=== PATIENT | female | born 1945 | race Caucasian/White ===

== ENCOUNTER 2017-04-19 16:45 | Inpatient (IN) | payer MEDICARE ==
[~2017-04-19] VITALS: Ht 152.4 cm; Wt 73.6 kg
[2017-04-19 16:46] VITALS: BP 149/76; PULSE 68; RESP 18; TEMP 99.4; O2SAT 97
--- NOTE | 2017-04-19 17:42 | RADRPT ---
EXAM DATE/TIME: 04/19/2017 17:28 [place] COMPARISON: No previous studies available for comparison. EXTERNAL COMPARISON : [facility] April 17, 2017 is unavailable for comparison. INDICATIONS : Cough. Patient was sent by her oncologist questioning if she has a PE MEDICAL HISTORY : Carcinoma, breast. SURGICAL HISTORY : Mastectomy, right. Loop recorder ENCOUNTER: Initial ACUITY: 2 days PAIN SCORE: 0/10 LOCATION: chest FINDINGS: Right lung is clear. Minimal consolidative changes are present left base. The heart and pulmonary v ascularity are normal. . Cardiac event recorder is evident. CONCLUSION: Consolidative changes left lower lobe. Davin Oates MD FACR on April 19, 2017 at 17:37 Board Certified Radiologist. This report was verified electronically.
[2017-04-19 19:13] LABS: AUTOMATED NEUTROPHIL # 16.1 TH/MM3 (1.8-7.7); BASOPHIL # 0.1 TH/MM3 (0-0.2); BASOPHIL % 0.3 % (0.0-2.0); EOSINOPHIL # 0.3 TH/MM3 (0-0.4); EOSINOPHIL % 1.5 % (0.0-4.0); HEMATOCRIT 38.2 % (35.0-46.0); HEMO FLAGS DIFF FINAL; LYMPHOCYTE # 2.2 TH/MM3 (1.0-4.8); MEAN CELL VOLUME 112.3 FL (80.0-100.0); MEAN CORPUSCULAR HEMOGLOBIN 37.8 PG (27.0-34.0); MEAN CORPUSCULAR HGB CONC 33.6 % (32.0-36.0); MONO % 6.8 % (0.0-8.0); NEUT % 80.4 % (16.0-70.0); PLATELET COUNT 241 TH/MM3 (150-450); RED CELL DISTRIBUTION WIDTH 15.2 % (11.6-17.2); WHITE BLOOD COUNT 20.1 TH/MM3 (4.0-11.0)
[2017-04-19 19:19] LABS: BICARBONATE 25.9 MEQ/L (21.0-32.0)
[2017-04-19 19:23] LABS: POTASSIUM 3.8 MEQ/L (3.5-5.1)
[2017-04-19] MEDS ORDERED: AMLO2.5T PO (20:38)
[2017-04-19] MEDS ORDERED: FURO20TA PO (20:38)
[2017-04-19] MEDS ORDERED: TYLE325T PO (20:38)
[2017-04-19] MEDS ORDERED: AMIO200T PO (20:38)
[2017-04-19] MEDS ORDERED: VITA1000 PO (20:38)
[2017-04-19] MEDS ORDERED: TELM1TAB56 PO (20:38)
[2017-04-19] MEDS ORDERED: METF500T PO (20:38)
[2017-04-19] MEDS ORDERED: LEVO112T2 PO (20:38)
[2017-04-19] MEDS ORDERED: METO50TA PO (20:38)
[2017-04-19] MEDS ORDERED: CALC250T PO (20:38)
[2017-04-19] MEDS ORDERED: PRAD150C PO (20:38)
[2017-04-19] MEDS ORDERED: POTA10CA PO (20:38)
[2017-04-19] MEDS ORDERED: HYDR500C PO (20:38)
[2017-04-19] MEDS ORDERED: PRAV40TA2 PO (20:38)
[2017-04-19] MEDS ORDERED: MULT-65 PO (20:38)
[2017-04-19] MEDS ORDERED: TIMO0.5S30 LEFT EYE (20:38)
[2017-04-19] MEDS ORDERED: TRAV0.00 EACH EYE (20:38)
[2017-04-19] MEDS ORDERED: OCUVTAB PO (20:38)
--- NOTE | 2017-04-19 20:51 | PD ---
HPI Chief Complaint: Abdominal Pain Time Seen by Provider: 20:07 Travel History International Travel<30 days: No Contact w/Intl Traveler<30days: No Traveled to known affect area: No History of Present Illness HPI Patient is a 71-year-old female coming in because her oncologist Dr. Mcdonald told her CTA done 2 days ago at [place] showed a pulmonary embolism. She has no symptoms. She has no shortness of breath. She has no tachycardia. She is not having a orthopnea or exertional shortness of breath. Patient is a non-insulin- dependent. She is also hypertensive did not take her evening meds and triage she is 180/79 BP. She has no lung symptoms whatsoever and is coming in only because she was called by her doctor to come in because a CT done 2 days ago shows a pulmonary embolus according to the patient. PFSH Past Medical History Arthritis: Yes Cancer: Yes (R BREAST) Cardiovascular Problems: Yes (HTN) Diabetes: Yes Patient Takes Glucophage: Yes (METFORMIN 04/19/17) Hypertension: Yes Migraines: Yes Thyroid Disease: Yes (HYPO) Tetanus Vaccination: Unknown Influenza Vaccination: No Past Surgical History Hysterectomy: Yes (TOTAL) Joint Replacement: Yes (LEFT KNEE) Mastectomy: Yes (R WITH NODES) Tonsillectomy: Yes Other Surgery: Yes (R MASECTOMY WITH NODES) Social History Alcohol Use: No Tobacco Use: No Substance Use: No Allergies-Medications (Allergen,Severity, Reaction): Coded Allergies: Penicillins (Verified Allergy, Unknown, 04/19/17) Sulfa (Sulfonamide Antibiotics) (Verified Allergy, Unknown, 04/19/17) nitrofurantoin (Verified Allergy, Unknown, 04/19/17) Reported Meds & Prescriptions Reported Meds & Active Scripts Active Reported Amlodipine (Amlodipine Besylate) 2.5 Mg Tab 2.5 Mg PO DAILY Amiodarone (Amiodarone HCl) 200 Mg Tab 200 Mg PO DAILY Metoprolol Tartrate 50 Mg Tab 50 Mg PO BID Pradaxa (Dabigatran) 150 Mg Cap 150 Mg PO BID Ocuvite (Multiple Vitamins W/ Minerals) 1 Tab 1 Tab PO DAILY Tylenol (Acetaminophen) 325 Mg Tab 325 Mg PO Q4H PRN Travatan Z Opth Drops (Travoprost) 0.004 % Soln 1 Drop EACH EYE HS Timolol Opth Drops 0.5 % Soln 1 Drop LEFT EYE BID Micardis (Telmisartan) 80 Mg Tab 80 Mg PO DAILY Pravastatin 40 Mg Tab 40 Mg PO DAILY Multi-Vitamin Daily (Multiple Vitamin) 1 Tab Tab 1 Tab PO DAILY Metformin (Metformin HCl) 500 Mg Tab 500 Mg PO DAILY With a meal Levothyroxine (Levothyroxine Sodium) 112 Mcg Tab 112 Mcg PO DAILY Potassium Chloride ER (Potassium Chloride) 10 Meq Cap 10 Meq PO BID Hydrea (Hydroxyurea) 500 Mg Cap 500 Mg PO BID Furosemide 20 Mg Tab 20 Mg PO DAILY Calcium Citrate 250 Mg Calcium Tab 250 Mg PO BID Vitamin D-1000 (Cholecalciferol) 1,000 Unit Tab 5,000 Units PO TID Review of Systems Except as stated in HPI: all other systems reviewed are Neg General / Constitutional: No: Fever Cardiovascular: No: Chest Pain or Discomfort Respiratory: No: Cough, Shortness of Breath Physical Exam Narrative GENERAL: AOX3 no resp distress, no tachycardiac, no increased RR SKIN: Warm and dry. HEAD: Atraumatic. Normocephalic. EYES: Pupils equal and round. No scleral icterus. No injection or drainage. ENT: No nasal bleeding or discharge. Mucous membranes pink and moist. NECK: Trachea midline. No JVD. CARDIOVASCULAR: Regular rate and rhythm. HR 66 BPM RESPIRATORY: No accessory muscle use. Clear to auscultation. Breath sounds equal bilaterally. GASTROINTESTINAL: Abdomen soft, non-tender, nondistended. Hepatic and splenic margins not palpable. MUSCULOSKELETAL: Extremities. No obvious deformities. NEUROLOGICAL: Awake and alert. No obvious cranial nerve deficits. Motor grossly within normal limits. Five out of 5 muscle strength in the arms and legs. Normal speech. PSYCHIATRIC: Appropriate mood and affect; insight and judgment normal. Data Data Last Documented VS Vital Signs Date Time Temp Pulse Resp B/P (MAP) Pulse Ox O2 Delivery O2 Flow Rate FiO2 04/19/17 21:00 60 18 145/65 (91) 95 Room Air 04/19/17 16:46 99.4 Orders Orders Complete Blood Count With Diff (04/19/17 17:14) Basic Metabolic Panel (Bmp) (04/19/17 17:14) Coag Profile (04/19/17 17:14) Electrocardiogram (04/19/17 ) Chest, Pa & Lat (04/19/17 ) Admit To Inpatient (04/19/17 ) Inpatient Certification (04/19/17 ) Diet Heart Healthy (04/20/17 Breakfast) Vital Signs (Adult) LIBBY.Q4H (04/19/17 22:02) Activity Bed Rest With Brp (04/19/17 22:02) Labs Laboratory Tests Test 04/19/17 18:01 04/19/17 20:53 White Blood Count 20.1 TH/MM3 Red Blood Count 3.40 MIL/MM3 Hemoglobin 12.8 GM/DL Hematocrit 38.2 % Mean Corpuscular Volume 112.3 FL Mean Corpuscular Hemoglobin 37.8 PG Mean Corpuscular Hemoglobin Concent 33.6 % Red Cell Distribution Width 15.2 % Platelet Count 241 TH/MM3 Mean Platelet Volume 8.6 FL Neutrophils (%) (Auto) 80.4 % Lymphocytes (%) (Auto) 11.0 % Monocytes (%) (Auto) 6.8 % Eosinophils (%) (Auto) 1.5 % Basophils (%) (Auto) 0.3 % Neutrophils # (Auto) 16.1 TH/MM3 Lymphocytes # (Auto) 2.2 TH/MM3 Monocytes # (Auto) 1.4 TH/MM3 Eosinophils # (Auto) 0.3 TH/MM3 Basophils # (Auto) 0.1 TH/MM3 CBC Comment DIFF FINAL Differential Comment Blood Urea Nitrogen 17 MG/DL Creatinine 0.80 MG/DL Random Glucose 111 MG/DL Calcium Level 8.7 MG/DL Sodium Level 132 MEQ/L Potassium Level 3.8 MEQ/L Chloride Level 98 MEQ/L Carbon Dioxide Level 25.9 MEQ/L Anion Gap 8 MEQ/L Estimat Glomerular Filtration Rate 70 ML/MIN Prothrombin Time 13.8 SEC Prothromb Time International Ratio 1.2 RATIO Activated Partial Thromboplast Time 43.2 SEC MDM Medical Decision Making Medical Screen Exam Complete: Yes Emergency Medical Condition: Yes Differential Diagnosis P E vs CHF vs ACS vs incidental finding on CT Narrative Course pt has CTA from monday that revealed a LLL PE , I spoke with Dr Singh of the [facility] covering for Dr Field, pt is Diagnosis Primary Impression: Pulmonary emboli Admitting Information Admitting Physician Requests: Admit Condition: Stable Nicola Jay MD Apr 19, 2017 20:51
[2017-04-19 21:00] VITALS: BP 145/65; PULSE 60; RESP 18; O2SAT 95
[2017-04-19] MEDS ORDERED: HEPARIN-D5W 25,000 U/250 ML 250 ML IV PRN (22:15)
[2017-04-19 22:29] LABS: INTERNATIONAL NORMALIZED RATIO 1.2 RATIO; PROTHROMBIN TIME - PATIENT 13.8 SEC (9.8-11.6)
[2017-04-19 22:31] LABS: APTT (PATIENT) 43.2 SEC (24.3-30.1)
[2017-04-19 22:46] VITALS: BP 149/67; PULSE 55; RESP 17; O2SAT 95
[2017-04-20 00:25] VITALS: BP 128/57; PULSE 63; RESP 20; TEMP 98; O2SAT 94
[2017-04-20 03:29] VITALS: BP 128/60; PULSE 65; RESP 18; TEMP 98.2; O2SAT 96
[2017-04-20] MEDS ORDERED: HEPARIN SODIUM - IV 10,000 UNITS/10 ML VIAL IV PRN (04:15)
[2017-04-20] MEDS ORDERED: HEPARIN - 10,000 UNITS/ML IV ADDITIVE IV PRN (04:15)
[2017-04-20 06:02] LABS: HEMATOCRIT 33.9 % (35.0-46.0); MEAN CELL VOLUME 112.5 FL (80.0-100.0); MEAN CORPUSCULAR HEMOGLOBIN 38.9 PG (27.0-34.0); MEAN CORPUSCULAR HGB CONC 34.5 % (32.0-36.0); PLATELET COUNT 202 TH/MM3 (150-450); RED BLOOD COUNT 3.01 MIL/MM3 (4.00-5.30); RED CELL DISTRIBUTION WIDTH 14.9 % (11.6-17.2); REVIEW FLAG FINAL; WHITE BLOOD COUNT 17.1 TH/MM3 (4.0-11.0)
[2017-04-20 06:11] LABS: APTT (PATIENT) 67.6 SEC (24.3-30.1); INTERNATIONAL NORMALIZED RATIO 1.2 RATIO; PROTHROMBIN TIME - PATIENT 13.1 SEC (9.8-11.6)
--- NOTE | 2017-04-20 07:56 | HHI.HP ---
HPI Service [facility] Hospitalists Primary Care Physician Dr. Kevin Lozoya Admission Diagnosis PULMONARY Embolus Chief Complaint: PE Travel History International Travel<30 Days: No Contact w/Intl Traveler <30 Da: No Traveled to Known Affected Are: No History of Present Illness Mrs. 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 Pt reports that she had a CTA chest 4 days ago and was called by her Oncologist, Dr. Field, with the results of a reported PE and instructed to go to the ED. Pt states that she has not had any SOB, palpitations , or chest pain. In review of previous noted from Dr. Field she has a previous abnormal lung nodule and Dr. Field had wanted a CT scan with IV contrast for re- evaluation. Pt was started on Heparin in the ED. She is currently on RA with stable O2 saturations. Pt states that she was started on Pradaxa a few months ago by Dr. Napoles for her A. fib. She was also started a few months back on Amiodarone and Amlodipine in addition to the Metoprolol and Micardis that she was also taking. She reports that her BP have been stable on all these medications. Denies any dizziness, weakness, palpitations, chest pain, nausea/ vomiting, abdominal pain. She takes Lasix as needed for LE edema. She states that she has not taken this for the last week. Review of Systems Constitutional: DENIES: Fever, Chills, Dizziness Eyes: DENIES: Vision loss Ears, nose, mouth, throat: DENIES: Hearing loss Respiratory: DENIES: Cough, Shortness of breath Cardiovascular: COMPLAINS OF: Lower Extremity Edema (mild, chronic), DENIES: Chest pain, Palpitations, Dyspnea on Exertion, Orthopnea Gastrointestinal: DENIES: Abdominal pain, Constipation, Diarrhea, Nausea, Vomiting Genitourinary: DENIES: Urinary frequency, Hematuria, Dysuria Musculoskeletal: DENIES: Joint pain, Back pain, Neck pain Integumentary: DENIES: Rash Immunologic/allergic: DENIES: Urticaria Neurologic: DENIES: Headache Psychiatric: DENIES: Confusion Past Family Social History Past Medical History 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 fib Paroxysmal SVT PVCs RBBB Migraine headaches Hypothyroidism Diabetes 2D echo (02/14/17): - Normal LV systolic function, EF 60-65% - Mild LA enlargement - Mild LVH - Mild aortic valve sclerosis - Mild tricuspid valve regurgitation - Estimated RVSP 36mmHg Past Surgical History Hysterectomy Tonsillectomy Left total knee arthroplasty in 2012 Right mastectomy with lymph node removal Loop recorder implanted (2014) Ablation for A. fib Cataract surgery Reported Medications -Metoprolol Tartrate 50 Mg PO BID -Ocuvite 1 Tab PO DAILY -Tylenol 325 Mg PO Q4H PRN -Travatan Z Opth Drops (Travoprost) 0.004 % Soln 1 Drop EACH EYE HS -Timolol Opth Drops 0.5 % Soln 1 Drop LEFT EYE BID -Micardis 80 Mg PO DAILY -Pravastatin 40 Mg PO DAILY -Multi-Vitamin Daily 1 Tab PO DAILY -Metformin 500 Mg PO DAILY -Levothyroxine 112 Mcg PO DAILY -Potassium Chloride ER 10 Meq PO BID -Hydrea 500 Mg PO BID -Furosemide 20 Mg PO DAILY -Calcium Citrate 250 Mg Calcium Tab 250 Mg PO BID -Vitamin D-1000 5,000 Units PO TID ?Pradaxa 150 Mg PO BID ?Amlodipine 2.5 Mg PO DAILY ?Amiodarone 200 Mg PO DAILY Allergies: Coded Allergies: Penicillins (Verified Allergy, Unknown, 04/19/17) Sulfa (Sulfonamide Antibiotics) (Verified Allergy, Unknown, 04/19/17) nitrofurantoin (Verified Allergy, Unknown, 04/19/17) Family History Noncontributory Social History Denies any alcohol, tobacco or illicit drug use Physical Exam Vital Signs Vital Signs Date Time Temp Pulse Resp B/P (MAP) Pulse Ox O2 Delivery O2 Flow Rate FiO2 04/20/17 03:29 98.2 65 18 128/60 (82) 96 04/20/17 00:25 98.0 63 20 128/57 (80) 94 04/19/17 23:56 04/19/17 22:46 55 17 149/67 (94) 95 Room Air 04/19/17 21:00 60 18 145/65 (91) 95 Room Air 04/19/17 16:46 99.4 68 18 149/76 (100) 97 Room Air Physical Exam GENERAL: This is a well-nourished, well-developed patient, in no apparent distress. HEENT: Atraumatic. Normocephalic. No temporal or scalp tenderness. No scleral icterus. Airway patent. NECK: Trachea midline, supple, nontender. CARDIO: Regular. RESP: CTA bilaterally. No wheezes, rales, or rhonchi. ABD: +BS, soft, non-tender, nondistended. EXT: Extremities without clubbing, cyanosis, or edema. NEURO: Awake and alert. Motor and sensory grossly within normal limits. Normal speech. Laboratory Laboratory Tests Test 04/19/17 18:01 04/19/17 20:53 04/20/17 05:25 White Blood Count 20.1 17.1 Red Blood Count 3.40 3.01 Hemoglobin 12.8 11.7 Hematocrit 38.2 33.9 Mean Corpuscular Volume 112.3 112.5 Mean Corpuscular Hemoglobin 37.8 38.9 Mean Corpuscular Hemoglobin Concent 33.6 34.5 Red Cell Distribution Width 15.2 14.9 Platelet Count 241 202 Mean Platelet Volume 8.6 8.6 Neutrophils (%) (Auto) 80.4 Lymphocytes (%) (Auto) 11.0 Monocytes (%) (Auto) 6.8 Eosinophils (%) (Auto) 1.5 Basophils (%) (Auto) 0.3 Neutrophils # (Auto) 16.1 Lymphocytes # (Auto) 2.2 Monocytes # (Auto) 1.4 Eosinophils # (Auto) 0.3 Basophils # (Auto) 0.1 CBC Comment DIFF FINAL Differential Comment Blood Urea Nitrogen 17 Creatinine 0.80 Random Glucose 111 Calcium Level 8.7 Sodium Level 132 Potassium Level 3.8 Chloride Level 98 Carbon Dioxide Level 25.9 Anion Gap 8 Estimat Glomerular Filtration Rate 70 Prothrombin Time 13.8 13.1 Prothromb Time International Ratio 1.2 1.2 Activated Partial Thromboplast Time 43.2 67.6 Result Diagram: 04/20/17 0525 04/19/17 1801 Imaging Last Impressions Chest X-Ray 04/19/17 0000 Signed Impressions: Service Date/Time: Wednesday, April 19, 2017 17:28 - CONCLUSION: Consolidative changes left lower lobe. Davin Oates MD FACR Caprini VTE Risk Assessment Caprini VTE Risk Assessment: Mod/High Risk (score >= 2) Caprini Risk Assessment Model Point Value = 1 Point Value = 2 Point Value = 3 Point Value = 5 Age 41-60 Minor surgery BMI > 25 kg/m2 Swollen legs Varicose veins or History of unexplained or recurrent spontaneous Oral contraceptives or hormone replacement Sepsis (< 1 month) Serious lung disease, including pneumonia (< 1 month) Abnormal pulmonary function Acute myocardial infarction Congestive heart failure (< 1 month) History of inflammatory bowel disease Medical patient at bed rest Age 61-74 Arthroscopic surgery Major open surgery (> 45 min) Laparoscopic surgery (> 45 min) Malignancy Confined to bed (> 72 hours) Immobilizing plaster cast Central venous access Age >= 75 History of VTE Family history of VTE Factor V Leiden Prothrombin [id number] Lupus anticoagulant Anticardiolipin antibodies Elevated serum homocysteine Heparin-induced thrombocytopenia Other congenital or acquired thrombophilia Stroke (< 1 month) Elective arthroplasty Hip, pelvis, or leg fracture Acute spinal cord injury (< 1 month) Prophylaxis Regimen Total Risk Factor Score Risk Level Prophylaxis Regimen 0-1 Low Early ambulation 2 Moderate Order ONE of the following: *Sequential Compression Device (SCD) *Heparin 5000 units SQ BID 3-4 Higher Order ONE of the following medications: *Heparin 5000 units SQ TID *Enoxaparin/Lovenox 40 mg SQ daily (WT < 150 kg, CrCl > 30 mL/min) *Enoxaparin/Lovenox 30 mg SQ daily (WT < 150 kg, CrCl > 10-29 mL/min) *Enoxaparin/Lovenox 30 mg SQ BID (WT < 150 kg, CrCl > 30 mL/min) AND/OR *Sequential Compression Device (SCD) 5 or more Highest Order ONE of the following medications: *Heparin 5000 units SQ TID (Preferred with Epidurals) *Enoxaparin/Lovenox 40 mg SQ daily (WT < 150 kg, CrCl > 30 mL/min) *Enoxaparin/Lovenox 30 mg SQ daily (WT < 150 kg, CrCl > 10-29 mL/min) *Enoxaparin/Lovenox 30 mg SQ BID (WT < 150 kg, CrCl > 30 mL/min) AND *Sequential Compression Device (SCD) Assessment and Plan Problem List: (1) Pulmonary embolism ICD Codes: I26.99 - Other pulmonary embolism without acute cor pulmonale Plan: Patient is a 71 y/o female with HTN, diabetes, atrial fibrillation on Pradaxa, 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 Pulmonary Embolism - Pt reports that she had a CTA chest 4 days ago and was called by her Oncologist, Dr. Field, office with the results of a reported PE and instructed to go to the ED. Pt states that she has not had any SOB, palpitations, or chest pain. - In review of previous noted from Dr. Field she has a previous abnormal lung nodule and Dr. Field had wanted a CT scan with IV contrast for re-evaluation. - Pt was started on Heparin in the ED. - She is currently on RA with stable O2 saturations. - Pt states that she was started on Pradaxa a few months ago by Dr. Napoles for her A. fib. - Obtain report of the CTA from [facility] to review - Consult Dr. Field - Heparin management per protocol A. fib - She was also started a few months back on Amiodarone and Pradaxa in addition to the Metoprolol she was on for her A. fib. - Pt has a Loop Recorder in place - She is currently in NSR HTN - Cont. Amlodipine and Micardis - Monitor BP Diabetes - Hold OHA - NovoLog SSI - Accu checks (2) Atrial fibrillation ICD Codes: I48.91 - Unspecified atrial fibrillation (3) Myeloproliferative neoplasm ICD Codes: D47.1 - Chronic myeloproliferative disease (4) Hx of breast cancer ICD Codes: Z85.3 - Personal history of malignant neoplasm of breast (5) HTN (hypertension) ICD Codes: I10 - Essential (primary) hypertension (6) Diabetes ICD Codes: E11.9 - Type 2 diabetes mellitus without complications Assessment and Plan Patient examined. Assessment and plan formulated with Lisa Marrero PA-C. I agree with the above. MPD/essential thromcocythemia. hx breast ca on pradaxa. developed PE. on heparin. seen by dr Field who pt tells me is going to switch over to eliquis. d/c tomorrow. Lisa Marrero Apr 20, 2017 07:56 Gabe Sosa MD Apr 20, 2017 14:47
[2017-04-20 08:19] VITALS: BP 155/72; PULSE 70; RESP 18; TEMP 98.3; O2SAT 97
[2017-04-20] MEDS ORDERED: PILL SPLITTER OTHER PRN (09:30)
[2017-04-20] MEDS ORDERED: FUROSEMIDE 20 MG TAB PO SCH (10:00)
[2017-04-20] MEDS: TIMOLOL MALEATE 0.5% OPHT SOLN 5 ML BTL LEFT EYE SCH ×2 (10:00→21:05)
[2017-04-20] MEDS: LEVOTHYROXINE SODIUM 112 MCG TAB PO SCH (10:29)
[2017-04-20] MEDS: AMIODARONE 200 MG TAB PO SCH (10:29)
[2017-04-20] MEDS: METOPROLOL TARTRATE 50 MG TAB PO SCH ×2 (10:29→21:08)
[2017-04-20] MEDS: POTASSIUM CHLORIDE 10 MEQ CAP PO SCH ×2 (10:30→21:06)
[2017-04-20] MEDS: amLODIPine BESYLATE 5 MG TAB PO SCH (10:30)
[2017-04-20] MEDS: PRAVASTATIN SOD 40 MG TAB PO SCH (10:30)
[2017-04-20] MEDS: LOSARTAN 50 MG TAB PO SCH (10:30)
[2017-04-20] MEDS ORDERED: DEXTROSE 50% IN WATER 50 ML VIAL(D50) IV PUSH PRN (10:30)
[2017-04-20] MEDS ORDERED: GLUCAGON 1 MG/ML VIAL OTHER PRN (10:30)
[2017-04-20 11:01] VITALS: BP 148/68; PULSE 70; RESP 18; TEMP 98; O2SAT 96
[2017-04-20] MEDS: HYDROXYUREA 500 MG CAP PO SCH ×2 (11:26→21:08)
[2017-04-20] MEDS: INSULIN ASPART SUPPLEMENTAL SCALE SQ SCH ×3 (12:00→21:00)
[2017-04-20 12:06] LABS: APTT (PATIENT) 55.3 SEC (24.3-30.1)
[2017-04-20 15:14] VITALS: BP 137/72; PULSE 63; RESP 18; TEMP 98.3; O2SAT 96
--- NOTE | 2017-04-20 17:06 | EKG ---
Date Performed: 04/19/2017 Time Performed: 17:51:51 PTAGE: 71 years EKG: Sinus rhythm RIGHT BUNDLE BRANCH BLOCK LEFT ANTERIOR FASCICULAR BLOCK MODERATE VOLTAGE CRITERIA FOR LVH, CONSIDER NORMAL VARIANT POSSIBLE SEPTAL MYOCARDIAL INFARCTION When compared to previous tracing, there is a n ew rigt bundle Branch block and new left anterior fascicular block. Clinical corrolation is nadege villalba ABNORMAL ECG PREVIOUS TRACING : 08/17/1998 17.09 DOCTOR: Janet Keen Interpretating Date/Time 04/20/2017 17:06:09
[2017-04-20 19:02] LABS: APTT (PATIENT) 43.9 SEC (24.3-30.1)
[2017-04-20 20:00] VITALS: BP 133/63; PULSE 67; RESP 20; TEMP 98.3; O2SAT 97
[2017-04-20] MEDS ORDERED: LATANOPROST 0.005% OPHT SOLN 2.5 ML BTL EACH EYE SCH (21:00)
[2017-04-21] VITALS: BP 125/59; PULSE 59; RESP 20; TEMP 98.1; O2SAT 96
[2017-04-21 02:49] LABS: APTT (PATIENT) 31.3 SEC (24.3-30.1)
[2017-04-21 04:00] VITALS: BP 123/63; PULSE 62; RESP 20; TEMP 98.4; O2SAT 93
[2017-04-21] MEDS: LEVOTHYROXINE SODIUM 112 MCG TAB PO SCH (05:39)
--- NOTE | 2017-04-21 06:32 | MB ---
cc: MIRNA AVILA DATE OF CONSULTATION April 20, 2017. REASON FOR CONSULTATION Patient with a history of myeloproliferative neoplasm with JAK2 positive essential thrombocytosis, history of atrial fibrillation who has pulmonary embolism. HISTORY OF PRESENT ILLNESS Ms. Wyatt is a 71-year-old female who has a diagnosis of myeloproliferative neoplasm with JAK2 positive essential thrombocytosis. She is being treated with Hydrea 500 mg twice daily. She has a history of A-fib and she was started on Pradaxa by her engine hostler. She also has a history of breast cancer and she has undergone mastectomy followed by chemotherapy. She was also treated with adjuvant radiation treatments. She was diagnosed with breast cancer in 1984. The patient recently underwent chest imaging and she was found to have pulmonary embolism. The patient was sent to the emergency department since she could not be evaluated in the oncology clinic. She has been started on heparin drip. She is tolerating the treatment without any issues. She denies any chest pain or shortness of breath. No abdominal pain and no lower extremity edema or pain. She states that she has been compliant with Pradaxa for the past 3-4 months and has not skipped her treatments. REVIEW OF SYSTEMS A comprehensive 14-point review of systems was completed which is negative except as described in the HPI. PAST MEDICAL HISTORY 1. Myeloproliferative neoplasm with JAK2 positive essential thrombocytosis, currently on Hydrea. 2. Right breast invasive breast cancer diagnosed in 1984. 3. Atrial fibrillation. 4. History of abnormal lung nodule. 5. Arthritis. 6. Hypertension. 7. Paroxysmal atrial fibrillation. 8. Paroxysmal SVT. 9. History of PVC. 10. Migraine headaches. 11. Hypothyroidism. 12. Diabetes. PAST SURGICAL HISTORY 1. Hysterectomy. 2. Tonsillectomy. 3. Left knee arthroplasty in 2011. 4. Right mastectomy with left lymph node . 5. Loop recorder placement. 6. Ablation for A-fib. 7. Cataract surgery. MEDICATIONS 1. Metoprolol 50 mg p.o. b.i.d. 2. Ocuvite 1 tablet p.o. daily. 3. Tylenol 325 mg p.o. q.4 hours p.r.n. 4. Travatan ophthalmic drops each eye q.h.s. 5. Timolol 0.5% solution 1 drop left eye b.i.d. 6. Micardis 80 mg p.o. daily. 7. Pravastatin 40 mg daily. 8. Multivitamin one tablet p.o. daily. 9. Metformin 500 mg p.o. daily. 10. Levothyroxine 112 mcg p.o. daily. 11. Potassium chloride 10 mEq p.o. b.i.d. 12. Hydrea 500 mg p.o. b.i.d. 13. Furosemide 20 mg p.o. daily. 14. Calcium citrate 50 mg p.o. b.i.d. 15. Vitamin D 5000 units p.o. t.i.d. 16. Pradaxa 150 mg p.o. b.i.d. which has been discontinued. 17. She is currently on heparin GTT. ALLERGIES PENICILLIN. SULFA DRUGS. NITROFURANTOIN. FAMILY HISTORY Noncontributory. SOCIAL HISTORY She does not smoke cigarettes. No alcohol abuse. No drug abuse. PHYSICAL EXAMINATION VITAL SIGNS: Blood pressure is 148/68, pulse is in 70s, temperature is 98, O2 sats are 96% on room air. GENERAL: Elderly female in no apparent distress. HEENT: Pupils are equal, round, reactive to light. EOMI. No oral thrush. No oral lesions. NECK: Supple. No JVD, no bruits, no lymphadenopathy. CHEST: Clear to auscultation bilaterally. CARDIAC: S1-S2. Regular rate and rhythm. ABDOMEN: Soft, nontender, nondistended. Bowel sounds are present. EXTREMITIES: Without any edema, clubbing or cyanosis. SKIN: Without any petechiae, lesion or bruises. NEURO: No focal deficits. PSYCHIATRIC: Mood and affect is appropriate. LABORATORY DATA WBC is 17.1, hemoglobin is 11.7, platelet count is 202. Serum chemistries show sodium of 132, potassium 3.8, chloride 98, CO2 25.9, anion gap is 8, BUN is 17, creatinine is 0.8, GFR is 70, glucose is 111, calcium is 8.7. Coags - PTT is 55.3. CHEST X-RAY Consolidated changes were noted in the left lobe. OUTPATIENT CTA Reviewed. ASSESSMENT AND PLAN This is 71-year-old female who has a diagnosis of myeloproliferative neoplasm with JAK2 positive essential thrombocytosis, history of paroxysmal A-fib, history of breast cancer who was admitted to the hospital after she was found to have pulmonary embolism. 1. Pulmonary embolism in the setting of myeloproliferative disorder with JAK2 Positive disease: She was on Pradaxa and has been compliant so technically this appears to be a failure of anticoagulation with Pradaxa. Continue heparin. We will transition the patient to Eliquis. She will be started on the loading dose for the first week and then this will be switched to the maintenance Eliquis dose after that. If the patient is stable tomorrow, we can discharge her home with Eliquis 10 mg p.o. b.i.d X 7 days, followed by 5mg PO BID. We will need to obtain Dopplers of the lower extremity to see whether the source of this pulmonary embolism is in the lower extremities. I have discussed this with the patient at length. I have answered all her questions. 2. JAK2 positive essential thrombocytosis and myeloproliferative neoplasm: She will remain on Hydrea. 3. Remote history of breast cancer. She is essentially cured from this disease. Thank you for allowing me to participate in the care of this patient. I will continue to follow this patient along. MD ARTIE Michele/JEANCARLOS /11:56 PM /6:07 AM MTDNora
[2017-04-21 07:47] VITALS: BP 139/61; PULSE 66; RESP 16; TEMP 97.9; O2SAT 94
[2017-04-21] MEDS: INSULIN ASPART SUPPLEMENTAL SCALE SQ SCH ×2 (08:00→12:00)
--- NOTE | 2017-04-21 08:22 | HHI.PR ---
Subjective Remarks No new complaints Pt is having LE Doppler performed Complains of slight headache Objective Vitals Vital Signs Date Time Temp Pulse Resp B/P (MAP) Pulse Ox O2 Delivery O2 Flow Rate FiO2 04/21/17 07:47 97.9 66 16 139/61 (87) 94 04/21/17 04:00 98.4 62 20 123/63 (83) 93 04/21/17 00:00 98.1 59 20 125/59 (81) 96 04/20/17 20:00 98.3 67 20 133/63 (86) 97 04/20/17 15:14 98.3 63 18 137/72 (93) 96 04/20/17 11:01 98.0 70 18 148/68 (94) 96 04/20/17 08:19 98.3 70 18 155/72 (99) 97 Result Diagram: 04/20/17 0525 04/19/17 1801 Other Results Laboratory Tests Test 04/19/17 18:01 04/19/17 20:53 04/20/17 05:25 04/20/17 11:10 White Blood Count 20.1 TH/MM3 17.1 TH/MM3 Red Blood Count 3.40 MIL/MM3 3.01 MIL/MM3 Hemoglobin 12.8 GM/DL 11.7 GM/DL Hematocrit 38.2 % 33.9 % Mean Corpuscular Volume 112.3 FL 112.5 FL Mean Corpuscular Hemoglobin 37.8 PG 38.9 PG Mean Corpuscular Hemoglobin Concent 33.6 % 34.5 % Red Cell Distribution Width 15.2 % 14.9 % Platelet Count 241 TH/MM3 202 TH/MM3 Mean Platelet Volume 8.6 FL 8.6 FL Neutrophils (%) (Auto) 80.4 % Lymphocytes (%) (Auto) 11.0 % Monocytes (%) (Auto) 6.8 % Eosinophils (%) (Auto) 1.5 % Basophils (%) (Auto) 0.3 % Neutrophils # (Auto) 16.1 TH/MM3 Lymphocytes # (Auto) 2.2 TH/MM3 Monocytes # (Auto) 1.4 TH/MM3 Eosinophils # (Auto) 0.3 TH/MM3 Basophils # (Auto) 0.1 TH/MM3 CBC Comment DIFF FINAL Differential Comment Blood Urea Nitrogen 17 MG/DL Creatinine 0.80 MG/DL Random Glucose 111 MG/DL Calcium Level 8.7 MG/DL Sodium Level 132 MEQ/L Potassium Level 3.8 MEQ/L Chloride Level 98 MEQ/L Carbon Dioxide Level 25.9 MEQ/L Anion Gap 8 MEQ/L Estimat Glomerular Filtration Rate 70 ML/MIN Prothrombin Time 13.8 SEC 13.1 SEC Prothromb Time International Ratio 1.2 RATIO 1.2 RATIO Activated Partial Thromboplast Time 43.2 SEC 67.6 SEC 55.3 SEC Test 04/20/17 17:48 04/20/17 23:10 04/21/17 02:10 Activated Partial Thromboplast Time 43.9 SEC 148.0 SEC 31.3 SEC Imaging Last Impressions Chest X-Ray 04/19/17 0000 Signed Impressions: Service Date/Time: Monday, April 19, 2017 17:28 - CONCLUSION: Consolidative changes left lower lobe. 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 Pulmonary Embolism - Pt reports that she had a CTA chest 4 days ago and was called by her Oncologist, Dr. Field, office with the results of a reported PE and instructed to go to the ED. Pt states that she has not had any SOB, palpitations, or chest pain. - In review of previous noted from Dr. Field she has a previous abnormal lung nodule and Dr. Field had wanted a CT scan with IV contrast for re-evaluation. - Pt was started on Heparin in the ED. - She is currently on RA with stable O2 saturations. - Pt states that she was started on Pradaxa a few months ago by Dr. Napoles for her A. fib and has been compliant. - Obtain report of the CTA from [facility] to review - Appreciate consultation from Dr. Field, Dr. Field has recommended Starting Eliquis 5mg po BID - Stop Heparin this morning, 3 hours after stopping Heparin this morning, start Eliquis 5mg po BID. This was discussed with the pts nurse - LE Doppler US is pending. A. fib - She was also started a few months back on Amiodarone and Pradaxa in addition to the Metoprolol she was on for her A. fib. - Pt has a Loop Recorder in place - She is currently in NSR HTN - Cont. Amlodipine and Micardis - Monitor BP Diabetes - Hold OHA - NovoLog SSI - Accu checks (2) Atrial fibrillation ICD Codes: I48.91 - Unspecified atrial fibrillation (3) Myeloproliferative neoplasm ICD Codes: D47.1 - Chronic myeloproliferative disease (4) Hx of breast cancer ICD Codes: Z85.3 - Personal history of malignant neoplasm of breast (5) HTN (hypertension) ICD Codes: I10 - Essential (primary) hypertension (6) Diabetes ICD Codes: E11.9 - Type 2 diabetes mellitus without complications Assessment and Plan Patient examined. Assessment and plan formulated with Lisa Marrero PA-C. I agree with the above. stop pradaxa. d/c heparin. eliquis and f/u hem/onc and pcp. Problem Qualifiers (1) Pulmonary embolism: Qualified Codes: I26.99 - Other pulmonary embolism without acute cor pulmonale Lisa Marrero Apr 21, 2017 08:22 Gabe Sosa MD Apr 21, 2017 15:14
--- NOTE | 2017-04-21 08:44 | RADRPT ---
EXAM DATE/TIME: 04/21/2017 08:11 [place] COMPARISON: No previous studies available for comparison. INDICATIONS : Bilateral leg swelling. MEDICAL HISTORY : Hypertension. Hypothyroidism. Migraine. Right breast cancer. Diabetes. Arthritis. Anticoagulant the Kathya yang. SURGICAL HISTORY : Tonsillectomy.Hysterectomy. Right mastectomy with lymph node removal. ENCOUNTER: Initial ACUITY: 2 day PAIN SCORE: 0/10 LOCATION: Bilateral legs. TECHNIQUE: Venous ultrasound of the left and right leg was performed from the inguinal ligament to the proximal calf. Real-time, color Doppler and spectral tracing, compression and augmentation techniques were us ed. FINDINGS: RIGHT LEG: There is normal compressibility of the deep venous system from the inguinal region to the proximal ca lf. No echogenic clot is seen in the lumen of the common femoral, femoral, popliteal, and posterior tibial veins. There is a normal response of the venous system to proximal and distal augmentation an d respiration. LEFT LEG: There is normal compressibility of the deep venous system from the inguinal region to the proximal ca lf. No echogenic clot is seen in the lumen of the common femoral, femoral, popliteal, and posterior tibial veins. There is a normal response of the venous system to proximal and distal augmentation an d respiration. CONCLUSION: Normal examination. Juice Andrews MD on April 21, 2017 at 8:41 Board Certified Radiologist. This report was verified electronically.
[2017-04-21] MEDS: AMIODARONE 200 MG TAB PO SCH (09:15)
[2017-04-21] MEDS: HYDROXYUREA 500 MG CAP PO SCH (09:16)
[2017-04-21] MEDS: METOPROLOL TARTRATE 50 MG TAB PO SCH (09:16)
[2017-04-21] MEDS: PRAVASTATIN SOD 40 MG TAB PO SCH (09:16)
[2017-04-21] MEDS: amLODIPine BESYLATE 5 MG TAB PO SCH (09:16)
[2017-04-21] MEDS: POTASSIUM CHLORIDE 10 MEQ CAP PO SCH (09:16)
[2017-04-21] MEDS: LOSARTAN 50 MG TAB PO SCH (09:17)
[2017-04-21] MEDS: TIMOLOL MALEATE 0.5% OPHT SOLN 5 ML BTL LEFT EYE SCH (09:18)
[2017-04-21] MEDS ORDERED: APIXABAN 5 MG TABLET PO SCH ×2 (11:00→21:00)
[2017-04-21 12:04] VITALS: BP 129/61; PULSE 60; RESP 16; TEMP 98.7; O2SAT 96
[2017-04-21] MEDS ORDERED: APIX5TAB PO (13:14)
--- NOTE | 2017-04-21 13:16 | HHI.DCPOC ---
Discharge Care Plan Diagnosis: (1) Atrial fibrillation (2) Diabetes (3) HTN (hypertension) (4) Hx of breast cancer (5) Myeloproliferative neoplasm (6) Pulmonary embolism Goals to Promote Your Health * To prevent worsening of your condition and complications * To maintain your health at the optimal level Directions to Meet Your Goals Take your medications as prescribed Follow your dietary instruction Follow activity as directed Keep your appointments as scheduled Take your immunizations and boosters as scheduled If your symptoms worsen call your PCP, if no PCP go to Urgent Care Center or Emergency Room Smoking is Dangerous to Your Health. Avoid second hand smoke Call the 24-hour hour crisis hotline for domestic abuse at Lisa Marrero Apr 21, 2017 13:16
--- NOTE | 2017-04-21 21:58 | PD.ONC.PN ---
Subjective Subjective Remarks patient seen earlier in the day no dyspnea/no chest pain labs reviewed U/S LE reviewed --NO DVT ok to d/c home today eliquis 10mg po BID X 7 days and then 5mg po bid d/w rn o/n events reviewed f/u in clinic in 1-2 weeks Objective Data Date Time Temp Pulse Resp B/P (MAP) Pulse Ox O2 Delivery O2 Flow Rate FiO2 04/21/17 12:04 98.7 60 16 129/61 (83) 96 04/21/17 07:47 97.9 66 16 139/61 (87) 94 04/21/17 04:00 98.4 62 20 123/63 (83) 93 04/21/17 00:00 98.1 59 20 125/59 (81) 96 04/21/17 04/21/17 04/21/17 07:00 15:00 23:00 Intake Total 300 ml Balance 300 ml Result Diagram: 04/20/17 0525 04/19/17 1801 Laboratory Results Laboratory Tests Test 04/20/17 23:10 04/21/17 02:10 04/21/17 10:28 Activated Partial Thromboplast Time 148.0 SEC 31.3 SEC 27.0 SEC Imaging Studies Last 24 hours Impressions Lower Extremity Ultrasound 04/21/17 0000 Signed Impressions: Service Date/Time: Friday, April 21, 2017 08:11 - CONCLUSION: Normal examination. Juice Andrews MD Objective Remarks GENERAL: nad SKIN: Warm and dry. LYMPHATIC: No adenopathy. CARDIOVASCULAR: Regular rate and rhythm without murmurs. RESPIRATORY: Breath sounds equal bilaterally. No accessory muscle use. GASTROINTESTINAL: Abdomen soft, non-tender, nondistended. EXTREMITIES: No cyanosis, or edema. Assessment/Plan Problem List: (1) Atrial fibrillation ICD Codes: I48.91 - Unspecified atrial fibrillation Status: Chronic (2) Hx of breast cancer ICD Codes: Z85.3 - Personal history of malignant neoplasm of breast Status: Chronic (3) Myeloproliferative neoplasm ICD Codes: D47.1 - Chronic myeloproliferative disease (4) Pulmonary embolism ICD Codes: I26.99 - Other pulmonary embolism without acute cor pulmonale Status: Acute Problem Qualifiers (1) Pulmonary embolism: Qualified Codes: I26.99 - Other pulmonary embolism without acute cor pulmonale Frank Field MD Apr 21, 2017 21:58
[2017-04-28] MEDS ORDERED: APIXABAN 5 MG TABLET PO SCH (21:00)
== END 2017-04-21 13:45 | disposition home or self-care (01) | DRG 176 ==
LOC: NEPC 16:45 → NEDA 22:04 → NEPHCDU 23:45
PROVIDERS: ADMIT Hospitalist; ATTEND Hospitalist
DX: I26.99 Other pulmonary embolism without acute cor pulmonale (principal); I48.0 Paroxysmal atrial fibrillation; Z79.02 Long term (current) use of antithrombotics/antiplatelets; E11.9 Type 2 diabetes mellitus without complications; Z79.84 Long term (current) use of oral hypoglycemic drugs; D47.1 Chronic myeloproliferative disease; D47.3 Essential (hemorrhagic) thrombocythemia; I10 Essential (primary) hypertension; E03.9 Hypothyroidism, unspecified; Z85.3 Personal history of malignant neoplasm of breast; Z96.652 Presence of left artificial knee joint
CPT/HCPCS: 71020; 80048; 85025; 85027; 85610; 85730; 93005; 93970; J1644; J1815

== ENCOUNTER 2017-10-23 09:40 | Day surgery (SDC) | payer MEDICARE ==
[~2017-10-23] VITALS: Ht 152.4 cm; Wt 71.8 kg
[~2017-10-23 09:40] MED LIST: AMIO200T PO; AMLO2.5T PO; APIX5TAB PO; CALC250T PO; FURO20TA PO; HYDR500C PO; LEVO112T2 PO; METF500T PO; METO50TA PO; MULT-65 PO; OCUVTAB PO; POTA10CA PO; PRAV40TA2 PO; TELM1TAB56 PO; TIMO0.5S30 LEFT EYE; TRAV0.00 EACH EYE; TYLE325T PO; VITA1000 PO
[2017-10-23] MEDS ORDERED: SODIUM CHLOR 0.9% 1000 ML IV SCH (10:00)
[2017-10-23 10:05] VITALS: BP 144/74; PULSE 58; RESP 18; TEMP 98.1; O2SAT 95
[2017-10-23] MEDS ORDERED: LACTCAP8 PO ×2 (10:17)
[2017-10-23 10:36] LABS: BASOPHIL # 0.1 TH/MM3 (0-0.2); BASOPHIL % 0.6 % (0.0-2.0); EOSINOPHIL # 0.3 TH/MM3 (0-0.4); EOSINOPHIL % 1.5 % (0.0-4.0); HEMATOCRIT 36.2 % (35.0-46.0); HEMOGLOBIN 12.3 GM/DL (11.6-15.3); LYMPH % 10.2 % (9.0-44.0); LYMPHOCYTE # 1.9 TH/MM3 (1.0-4.8); MEAN CORPUSCULAR HEMOGLOBIN 38.9 PG (27.0-34.0); MEAN CORPUSCULAR HGB CONC 34.1 % (32.0-36.0); MEAN PLATELET VOLUME 8.3 FL (7.0-11.0); MONO % 5.2 % (0.0-8.0); NEUT % 82.5 % (16.0-70.0); PLATELET COUNT 220 TH/MM3 (150-450); RED BLOOD COUNT 3.17 MIL/MM3 (4.00-5.30); WHITE BLOOD COUNT 18.2 TH/MM3 (4.0-11.0)
[2017-10-23] MEDS ORDERED: MIDAZOLAM HCL 5 MG/5 ML VIAL ONE (10:53)
--- NOTE | 2017-10-23 11:34 | PD.RAD ---
Post CT Procedure Prog Note Pre Procedure Diagnosis: (1) Myeloproliferative neoplasm Post Procedure Diagnosis: (1) Myeloproliferative neoplasm Procedure Date: Oct 23, 2017 Supervising Radiologist: Juice Pringle Anesthesia: Conscious Sedation Plan of Activity Patient to Unit: ROPU Patient Condition: Good See PACS Report for procedural detail/treatment Biopsy Imaging Guidance: CT Side: Left Biopsy Procedure: Bone Marrow Site: posterior iliac bone Specimen: Core Biopsy Plan to ROPU then discharge in 2 hours if criteria met. Juice Pringle MD Oct 23, 2017 11:34
[2017-10-23 11:45] VITALS: BP 134/69; PULSE 53; RESP 16; TEMP 97.8; O2SAT 94
[2017-10-23 12:00] VITALS: BP 142/72; PULSE 53; RESP 18; O2SAT 95
[2017-10-23 12:30] VITALS: BP 119/54; PULSE 55; RESP 16; O2SAT 94
[2017-10-23 13:00] VITALS: BP 133/60; PULSE 55; RESP 16; O2SAT 97
--- NOTE | 2017-10-23 13:46 | RADRPT ---
EXAM DATE: 10/23/2017 1:02 PM EDT AGE/SEX: 72 years / Female INDICATIONS: Thrombocytosis. CLINICAL DATA: This is the patient's initial encounter. Patient reports that signs and symptoms have been present for 1 day and indicates a pain score of 0/10. MEDICAL/SURGICAL HISTORY: Carcinoma, breast. Hypertension. Hysterectomy. COMPARISON: No prior [facility] exams available for comparison. BIOPSY SITE: Left bone marrow MEDICATION(S): 4 mg midazolam (Versed) IV 100 mg fentanyl (Sublimaze) IV DEVICE(S): 11 gauge Bone marrow biopsy needle One . . PROCEDURE: CT guided Left bone marrow biopsy Prior to the procedure informed consent was obtained. Any appropriate prior imaging studies were rev iewed. Using automated exposure control and adjustment of the mA and/or kV according to patient size , radiation dose was kept as low as reasonably achievable to obtain optimal diagnostic quality images . DICOM format image data is available electronically for review and comparison. The site was prepped in a sterile fashion. Full sterile technique was used, including cap, mask, kalee rile gloves and gown and a large sterile sheet. Hand hygiene and 2% chlorhexidine and/or betadine/al cohol prep was utilized per protocol for cutaneous antisepsis. The skin and subcutaneous tissues wer e infiltrated with local anesthetic solution. With CT guidance the left posterior iliac bone was localized. Biopsy was performed using the prescrib ed needle as above. Following biopsy marrow aspiration was performed with repeat puncture. Adequate hemostasis was obtained with compression at the puncture site. Conscious sedation was performed with the prescribed dosages and duration as above in the presence of an independent trained radiology nurse to assist in the monitoring of the patient. EKG and oximetry remained stable throughout the procedure. The patient tolerated the procedure well and there were no complications. The patient was sent to Radiology Outpatient Unit in stable condition. CONCLUSION: 1. Uncomplicated CT guided bone marrow aspirate. 2. Uncomplicated CT guided bone marrow biopsy. Electronically signed by: Juice Pringle MD 10/23/2017 1:45 PM EDT
== END 2017-10-23 13:42 | disposition home or self-care (01) ==
LOC: HRAD 09:40 → HRIP 09:47 → HRAD 13:42
PROVIDERS: ATTEND Internal Medicine
DX: C94.6 Myelodysplastic disease, not elsewhere classified (principal); D47.3 Essential (hemorrhagic) thrombocythemia; I10 Essential (primary) hypertension; Z90.710 Acquired absence of both cervix and uterus; Z85.3 Personal history of malignant neoplasm of breast
CPT/HCPCS: 38222; 77012; 85025; 85097; 88305; 88311; 88313; 99152; 99153; C1830; J2250; J3010